=== PATIENT | male | born 1940 | race Caucasian/White ===

== ENCOUNTER 2017-06-10 09:41 | Inpatient (IN) | payer MEDICARE, OTHER ==
[2017-06-10 10:26] LABS: #Basophils 0.1 thou/uL (0.0-0.2); #Eosinphils 0.1 thou/uL (0.0-0.7); #Lymphocytes 1.7 thou/uL (1.20-3.40); #Monocytes 0.7 thou/uL (0.11-0.59); #Neutrophils 6.4 thou/uL (1.40-6.50); %Eosinophils 0.9 % (0.0-10.0); %Lymphocytes 19.1 % (21.0-51.0); %Monocytes 7.3 % (0.0-10.0); %Neutrophils 71.7 % (42.0-75.0); Hemoglobin 15.7 g/dL (14.0-18.0); Mean Corpuscular HGB CONC 32.4 g/dL (32.0-36.0); Mean Corpuscular Hemoglobin 31.9 pg (27.0-31.0); Mean Corpuscular Volume 98.5 fl (80.0-94.0); Mean Platelet Volume 7.9 fL (7.4-10.4); Platelet Count 189 thou/uL (130-400); RBC Distribution Width 12.3 % (11.5-14.5); Red Blood Cell (RBC) Count 4.91 mill/uL (4.70-6.10); White Blood Cell (WBC) Count 8.9 thou/uL (4.8-10.8)
[2017-06-10 10:35] LABS: INR-International Normal Ratio 1.1; PTT 30.1 SEC (22.9-36.1); Prothrombin Time 14.5 SEC (12.0-14.7)
--- NOTE | 2017-06-10 10:41 | CT ---
NONCONTRAST HEAD CT: Date: 06/10/17 COMPARISON: 11/06/16. HISTORY: Patient had previous intracranial hemorrhage. Patient is altered. Stroke alert. TECHNIQUE: A noncontrast head CT is performed from the skull base to the skull vertex. FINDINGS: No parenchymal hemorrhage or extra-axial hematoma. No midline shift. Basilar cisterns are patent. Age -appropriate atrophy. Cortical richard-white matter differentiation is preserved. Ventricles and sulci a re patent and symmetric. Chronic small vessel ischemic changes of the white matter are noted. There i s prominence of the ventricular system. Calvarium is intact. Adequate aeration of the sinuses and mas toid air cells. IMPRESSION: No acute intracranial process. Results of study discussed with Dr. Jones on 06/10/17 at 0955 hours. CODE CR. POS: [facility]
[2017-06-10 10:54] LABS: ALT (SGPT) 23 U/L (8-55); AST (SGOT) 15 U/L (5-34); Albumin 3.9 g/dL (3.4-4.8); Alkaline Phosphatase 75 U/L (40-150); Anion Gap 14 mmol/L (10-20); BUN (Urea Nitrogen) 24 mg/dL (8.4-25.7); Bilirubin, Total 1.4 mg/dL (0.2-1.2); Calc. Creatinine Clearance 0 mL/min (70-130); Calcium 9.3 mg/dL (7.8-10.44); Carbon Dioxide 22 mmol/L (23-31); Chloride 104 mmol/L (98-107); Estimated GFR-MDRD 85; Globulin 2.5 g/dL (2.4-3.5); Glucose 156 mg/dL (83-110); Potassium 3.7 mmol/L (3.5-5.1); Protein, Total 6.4 g/dL (5.8-8.1); Sodium 136 mmol/L (136-145)
[2017-06-10 10:59] LABS: CKMB 1.6 ng/mL (0-6.6); Troponin I Less than 0.010 ng/mL (< 0.028)
[2017-06-10 14:05] LABS: Troponin I Less than 0.010 ng/mL (< 0.028)
[2017-06-10] MEDS ORDERED: HumaLOG 300 UNITS/3 ML VIAL SC PRN (15:53)
[2017-06-10] MEDS ORDERED: Guaifenesin DM 100-10/5 ML UDCUP PO PRN (15:53)
[2017-06-10] MEDS ORDERED: Acetaminophen 325 MG TAB PO PRN (15:53)
[2017-06-10] MEDS ORDERED: Dextrose 50% Abboject 50 ML SYRINGE SLOW IVP PRN (15:53)
[2017-06-10] MEDS ORDERED: Senokot 8.6 MG TAB PO PRN (15:53)
[2017-06-10] MEDS ORDERED: Dextrose 5% in Water 1,000 ML IV PRN (15:53)
[2017-06-10] MEDS ORDERED: Sodium Chloride 0.9% 1,000 ML IV SCH (16:00)
--- NOTE | 2017-06-10 16:58 | HP ---
REASON FOR ADMISSION: Acute encephalopathy. HISTORY OF PRESENT ILLNESS: Please note the majority of this history is obtained by my talking to Ms. Hensley, nurse taking care of Mr. Pathak at [facility], ER physician, ER records, prior medical records as the patient is not oriented. Currently, he just wakes up to touch and knows his name but does not know much else. Per Ms. Hensley, the nurse at the [facility], the a.m. nurse went to see him this morning, and he was not arousable. He normally arouses very easily/wakes up very quick. He was not responding, and his nose was apparently blue, and he was pale. Ms. Hensley also mentions that he is only oriented to person and normally moves all four extremities. He is essentially bed bound there, so he does not know why he fell. His lower extremities are usually slow to move than the upper extremities. He sometimes sits in a [place] chair with assistance. His normal behavior at the [facility] is either he laughs or he gets aggressive. For the most part, he is apparently pleasant at the [facility]. PAST MEDICAL AND SURGICAL HISTORY: History of dementia, prior history of intracranial bleed per ER physician, chronic atrial fibrillation, normal pressure hydrocephalus, seizure disorder, hypertension, diabetes mellitus type 2 , dyslipidemia, benign prostatic hypertrophy, chronic anemia, appendectomy, cholecystectomy, left knee surgery, orthopedic surgery. CURRENT MEDICATIONS: Per [facility] records, patient is on NovoLog sliding scale, aspirin 81 mg daily, atorvastatin 80 mg daily, Colace 100 mg daily, ferrous sulfate 325 mg daily, Keppra 500 mg twice daily, Claritin 10 mg daily, Tylenol p.r.n., Lopressor 25 mg daily, Flomax 0.4 mg daily, potassium chloride 10 mEq daily, Procardia XL 30 mg daily, Protonix 40 mg daily, Proscar 5 mg daily , glipizide 10 mg daily, buspirone 10 mg daily. ALLERGIES: No known drug allergies. CODE STATUS: The patient is a FULL CODE per the [facility] records. He also has a health power of defense attorney, Ms. Brigid Pathak, who appears to be the power of defense attorney for him. FAMILY HISTORY: Cannot be obtained from the patient as he is not cognitively intact at present. PERSONAL HISTORY: The patient lives at [facility]. Does not abuse alcohol or drugs. No current smoking. REVIEW OF SYSTEMS: Cannot be obtained as the patient is not cognitively intact and is oriented only to person. PHYSICAL EXAMINATION: GENERAL: The patient is a 77-year-old male, who is currently not in any acute distress. VITAL SIGNS: Blood pressure 126/94, pulse 90 per minute, respiratory rate 18 per minute, temperature 97.6 degrees Fahrenheit, saturating 97% on room air. NECK: Supple, no elevated JVD. EYES: Extraocular muscles intact. Pupils reacting to light. ORAL CAVITY: Mucous membranes are dry. No exudates or congestion. CARDIOVASCULAR: S1, S2 heard. Regular rhythm. RESPIRATORY: Air entry 1+ bilaterally. No rales or rhonchi. ABDOMEN: Soft, bowel sounds heard. No tenderness, rigidity, or guarding. EXTREMITIES: No peripheral edema or calf tenderness. VASCULAR: Peripheral pulses 1+ bilateral. No ischemic ulcerations or gangrene. CENTRAL NERVOUS SYSTEM: The patient seems to be voluntarily holding his right upper and lower extremity. He was seen moving them when he wants to. The staff have noticed him moving his right upper and lower extremities as well. He freely moves his left upper and lower extremity. PSYCHIATRIC: Cannot be assessed as patient is not oriented at present. LABORATORY DATA: CT brain shows no acute intracranial process. EKG done shows atrial fibrillation at 108 beats per minute. Troponin x2 is negative. BUN 24, creatinine 0.8, glucose 156. Albumin is 3.9. PT, INR, PTT within normal limits. White count of 8, H&H 15 and 48, platelet count 189 with MCV of 98. CLINICAL IMPRESSION AND PLAN: The patient was a stroke alert from ER with apparent right-sided weakness. The patient is seen moving right upper and lower extremities in the ER but holds them voluntarily in an extended position when we try to flex them. He is not oriented, and patient has advanced dementia. He was not having any seizure activity when I examined him. He was apparently not his usual self with acute encephalopathy from early this morning. Likely, metabolic encephalopathy, and we will try to ascertain the same. He will be gently hydrated with normal saline at 60 mL per hour. His electrolytes seem to be okay at present. We will continue him on full dose aspirin, Lipitor, ferrous sulfate, finasteride, oxybutynin, Lopressor, and Keppra as before. Echo and MRI of the brain will also be obtained. He will be on clear liquid diet until evaluated by Speech. We will continue to closely monitor him on the stroke unit. FERNANDO
[2017-06-10 17:21] LABS: Troponin I Less than 0.010 ng/mL (< 0.028)
--- NOTE | 2017-06-10 17:25 | CON ---
DATE OF CONSULTATION: 06/10/2017 IMPRESSION: 1. Transient alteration of responsiveness, likely secondary to an unwitnessed seizure. 2. Dementia. 3. Diabetes. 4. Atrial fibrillation. 5. Coronary artery disease. 6. Hyperlipidemia. PLAN: 1. Keppra 750 mg twice a day. 2. The patient will return to the senior living. Mr. Pathak is a 77-year-old gentleman with history of dementia, who is a senior living resident, w ho was found unresponsive in his bed and brought into the emergency room. His vital signs, lab work and CAT scan of the brain were all unremarkable. The patient is regaining consciousness and has no m juan luis of what took place at the emergency room. PAST MEDICAL HISTORY: As listed above. ALLERGIES: None reported. SOCIAL HISTORY: Unremarkable. MEDICATION LIST: Reviewed. REVIEW OF SYSTEMS: The patient has no complaint of headache, nausea, dizziness, chest pain, shortnes s of breath or difficulty swallowing. PHYSICAL EXAMINATION: GENERAL: He is a well-nourished elderly gentleman, sitting up in the bed, very pleasant and cooperat yoana. HEENT: Pupils equal and reactive. Conjunctivae clear. Oropharynx clear. Tongue appears uninjured. NECK: Supple. No lymphadenopathy noted. EXTREMITIES: No cyanosis or edema. NEUROLOGIC: He was alert and cooperative. His speech was fluent and clear. He was only oriented to person, but did not know his age or any other current facts. Cranial nerves were intact. Motor exa m showed good strength throughout the upper extremities. [id number] movements were symmetric and mild tremor in the left hand. He had diminished strength in both legs. Gait is not testable and re portedly is wheelchair bound. Sensation was intact. Plantar responses were downgoing. SUMMARY: Elderly gentleman who reportedly has a history of seizures and had some transient alteratio n of awareness and his workup appears to be normal at this point. Increase his Keppra by 500 mg a da y and he can likely return to the senior living.
[2017-06-10] MEDS ORDERED: Atorvastatin Calcium 40 MG TAB PO SCH (21:00)
[2017-06-10] MEDS: Famotidine 20 MG TAB PO SCH (22:08)
[2017-06-10] MEDS: levETIRAcetam 500 MG TAB PO SCH (22:08)
[2017-06-10] MEDS: Metoprolol Tartrate 50 MG TAB PO SCH (22:09)
[2017-06-10] MEDS: Oxybutynin 5 MG TAB PO SCH (22:09)
[2017-06-10] MEDS: Docusate 100 MG CAP PO SCH (22:10)
[2017-06-11 08:34] LABS: #Basophils 0.1 thou/uL (0.0-0.2); #Eosinphils 0.1 thou/uL (0.0-0.7); #Lymphocytes 2.3 thou/uL (1.20-3.40); #Monocytes 0.6 thou/uL (0.11-0.59); #Neutrophils 3.7 thou/uL (1.40-6.50); %Basophils 1.1 % (0.0-1.0); %Eosinophils 1.9 % (0.0-10.0); %Lymphocytes 33.6 % (21.0-51.0); %Monocytes 8.7 % (0.0-10.0); %Neutrophils 54.6 % (42.0-75.0); Hemoglobin 14.2 g/dL (14.0-18.0); Mean Corpuscular HGB CONC 32.5 g/dL (32.0-36.0); Mean Corpuscular Hemoglobin 32.2 pg (27.0-31.0); Mean Corpuscular Volume 99.1 fl (80.0-94.0); Platelet Count 197 thou/uL (130-400); RBC Distribution Width 12.4 % (11.5-14.5); Red Blood Cell (RBC) Count 4.41 mill/uL (4.70-6.10); White Blood Cell (WBC) Count 6.8 thou/uL (4.8-10.8)
[2017-06-11 08:52] LABS: Anion Gap 11 mmol/L (10-20); Calc. Creatinine Clearance 73 mL/min (70-130); Calcium 8.9 mg/dL (7.8-10.44); Carbon Dioxide 28 mmol/L (23-31); Chloride 103 mmol/L (98-107); Cholesterol 100 mg/dl (< 200 Desired); Estimated GFR-MDRD 86; Potassium 3.8 mmol/L (3.5-5.1); Sodium 138 mmol/L (136-145); Triglycerides 84 mg/dL (Less than 150)
[2017-06-11] MEDS ORDERED: Aspirin 325 mg Enteric Coated Tablet PO SCH (09:00)
[2017-06-11] MEDS ORDERED: Enoxaparin Sodium 40 MG/0.4 ML SYRINGE SC SCH (09:00)
[2017-06-11] MEDS ORDERED: Finasteride 5 MG TAB PO SCH (09:00)
[2017-06-11] MEDS ORDERED: Ferrous Sulfate 325 MG TAB PO SCH (09:00)
[2017-06-11] MEDS ORDERED: Prevnar 13-Val Conj/PF 0.5 ML SYRINGE IM ONE (09:00)
[2017-06-11 09:02] LABS: BUN (Urea Nitrogen) 29 mg/dL (8.4-25.7); Glucose 110 mg/dL (83-110); HDL Cholesterol 34 mg/dL (>60 Neg Risk); LDL Cholesterol, Calculated 50 mg/dL
[2017-06-11] MEDS: Famotidine 20 MG TAB PO SCH (10:42)
[2017-06-11] MEDS: levETIRAcetam 500 MG TAB PO SCH (10:42)
[2017-06-11] MEDS: Oxybutynin 5 MG TAB PO SCH (10:42)
[2017-06-11] MEDS: Docusate 100 MG CAP PO SCH (10:42)
[2017-06-11] MEDS: Metoprolol Tartrate 50 MG TAB PO SCH (10:43)
--- NOTE | 2017-06-11 11:15 | PDOC.PN ---
- Subjective Encounter Start Date: 06/11/17 Encounter Start Time: 09:20 Subjective: awake, responds well to verbal questions -: is hungry wants to eat -: no seizures while on stroke unit - Objective Resuscitation Status: Resuscitation Status FULL:Full Resuscitation MAR Reviewed: Yes Vital Signs & Weight: Vital Signs (12 hours) Temp Pulse Resp BP Pulse Ox 06/11/17 08:09 97.5 F L 77 16 162/109 H 95 06/11/17 03:18 96.8 F L 76 16 143/106 H 95 06/10/17 23:17 97 F L 71 16 173/118 H 95 Weight Admit Weight 160 lb 12.8 oz Weight 164 lb I&O: 06/10/17 06/11/17 06/12/17 06:59 06:59 06:59 Intake Total 960 Balance 960 Result Diagrams: 06/11/17 08:08 06/11/17 08:08 Additional Labs: Accuchecks 06/11/17 06/10/17 06/10/17 06:16 20:34 18:03 POC Glucose 117 H 201 H 113 H Phys Exam - Physical Examination HEENT: PERRLA, moist MMs Neck: no JVD, supple Respiratory: no wheezing, no rales Cardiovascular: RRR, no significant murmur Gastrointestinal: soft, non-tender, positive bowel sounds Musculoskeletal: no edema, pulses present Neurological: non-focal, moves all 4 limbs Dx/Plan (1) Acute encephalopathy Code(s): G93.40 - ENCEPHALOPATHY, UNSPECIFIED Status: Resolved (2) Afib Code(s): I48.91 - UNSPECIFIED ATRIAL FIBRILLATION Status: Chronic Qualifiers: Atrial fibrillation type: chronic (3) BPH (benign prostatic hyperplasia) Code(s): N40.0 - BENIGN PROSTATIC HYPERPLASIA WITHOUT LOWER URINRY TRACT SYMP Status: Chronic Qualifiers: Lower urinary tract symptom presence: unspecified whether lower urinary tract symptoms present Qualified Code(s): N40.0 - Benign prostatic hyperplasia without lower urinary tract symptoms (4) CAD (coronary artery disease) Code(s): I25.10 - ATHSCL HEART DISEASE OF [place] CORONARY ARTERY W/O ANG PCTRS Status: Chronic Qualifiers: Coronary Disease-Associated Artery/Lesion type: [place] artery [place] vs. transplanted heart: [place]ka heart Associated angina: without angina Qualified Code(s): I25.10 - Atherosclerotic heart disease of [place] coronary artery without angina pectoris (5) DM type 2 (diabetes mellitus, type 2) Status: Chronic Qualifiers: Diabetes mellitus complication status: with unspecified complications Diabetes mellitus skilled nursing insulin use: without skilled nursing use Qualified Code( s): E11.8 - Type 2 diabetes mellitus with unspecified complications (6) Dementia Code(s): F03.90 - UNSPECIFIED DEMENTIA WITHOUT BEHAVIORAL DISTURBANCE Status: Chronic Qualifiers: Dementia type: unspecified type Dementia behavioral disturbance: without behavioral disturbance Qualified Code(s): F03.90 - Unspecified dementia without behavioral disturbance (7) Dyslipidemia Code(s): E78.5 - HYPERLIPIDEMIA, UNSPECIFIED Status: Chronic (8) Seizure disorder Code(s): G40.909 - EPILEPSY, UNSP, NOT INTRACTABLE, WITHOUT STATUS EPILEPTICUS Status: Acute - Plan is on increased dose of keppra now -: likely had unwitnessed seizure at [facility] prior to arrival in post ictal phase? -: MRI for completion -: pelvic xray to r/o fracture -: is seen moving all extremities * . d/w son at bedside and gave a full update, including possible dc back to [facility] this afternoon. Review of Systems - Medications/Allergies Allergies/Adverse Reactions: Allergies Allergy/AdvReac Type Severity Reaction Status Date / Time No Known Allergies Allergy Verified 07/16/16 04:43 Medications: Current Medications Acetaminophen (Tylenol) 650 mg PO Q4H PRN PRN Reason: Headache/Fever or Pain Aspirin (Ecotrin) 325 mg PO DAILY [facility] Last Admin: 06/11/17 10:42 Dose: 325 mg Atorvastatin Calcium (Lipitor) 80 mg PO HS [facility] Last Admin: 06/10/17 22:08 Dose: 80 mg Dextrose/Water (Dextrose 50%) 25 gm SLOW IVP PRN PRN PRN Reason: Hypoglycemia Docusate Sodium (Colace) 100 mg PO BID [facility] Last Admin: 06/11/17 10:42 Dose: 100 mg Enoxaparin Sodium (Lovenox) 40 mg SC 0900 [facility] Last Admin: 06/11/17 10:43 Dose: 40 mg Famotidine (Pepcid) 20 mg PO BID [facility] Last Admin: 06/11/17 10:42 Dose: 20 mg Ferrous Sulfate (Feosol) 325 mg PO DAILY [facility] Last Admin: 06/11/17 10:42 Dose: 325 mg Finasteride (Proscar) 5 mg PO DAILY [facility] Last Admin: 06/11/17 10:43 Dose: 5 mg Glucagon (Glucagon) 1 mg IM PRN PRN PRN Reason: Hypoglycemia Guaifenesin/Dextromethorphan (Robitussin Dm) 15 ml PO Q4H PRN PRN Reason: Cough Dextrose/Water (D5w) 1,000 mls @ 0 mls/hr IV .Q0M PRN; As Directed PRN Reason: Hypoglycemia Insulin Human Lispro (Humalog) 0 units SC .MODERATE SLIDING SC PRN PRN Reason: Moderate Correctional Scale Levetiracetam (Keppra) 500 mg PO BID [facility] Last Admin: 06/11/17 10:42 Dose: 500 mg Metoprolol Tartrate (Lopressor) 50 mg PO BID [facility] Last Admin: 06/11/17 10:43 Dose: 50 mg Oxybutynin Chloride (Ditropan) 5 mg PO BID [facility] Last Admin: 06/11/17 10:42 Dose: 5 mg Senna (Senokot) 2 tab PO HSPRN PRN PRN Reason: Constipation
--- NOTE | 2017-06-11 13:32 | RAD ---
PELVIS ONE VIEW: HISTORY: Evaluate for fracture. COMPARISON: None. FINDINGS: Mild narrowing of both hip joints. Obturator rings are intact. SI joints and pubic symphysis are un remarkable. Mild vascular calcifications. Numerous phleboliths in the pelvis. IMPRESSION: No displaced fracture or malalignment. POS: [facility]
[2017-06-11 13:42] VITALS: BMI 22.8
--- NOTE | 2017-06-11 13:49 | MRI ---
MRI BRAIN WITHOUT CONTRAST: HISTORY: Stroke. Previous intracranial hemorrhage. COMPARISON: CT brain prior day. FINDINGS: On the diffusion weighted imaging sequence, there are no areas of diffusion restriction to suggest ac chana infarction. This is confirmed on the ADC map. Moderate atrophy. Extensive periventricular and deep white matter microangiopathic changes. The exam ination is severely limited on the axial images due to motion. The cerebellar tonsils terminate abov e the foramen magnum. A sebaceous cyst of the posterior soft tissues of the neck is present. On the susceptibility weighted imaging sequence, there is a small focus of staining along the left th alamus likely from old hemorrhage. IMPRESSION: 1. No acute infarction. 2. Extensive microangiopathic changes with moderate atrophy. 3. Exam is limited due to extensive motion. POS: [facility]
--- NOTE | 2017-06-11 14:27 | DIS ---
DATE OF ADMISSION: 06/10/2017 DATE OF DISCHARGE: 06/11/2017 DISCHARGE DISPOSITION: To [facility]. PRIMARY DISCHARGE DIAGNOSIS: Acute encephalopathy, likely due to seizures. SECONDARY DISCHARGE DIAGNOSES: History of prior CVA, chronic atrial fibrillation, coronary artery di sease, benign prostatic hypertrophy, diabetes mellitus type 2, advanced dementia, dyslipidemia. PROCEDURES DONE DURING HOSPITALIZATION: CT brain done showed no acute intracranial abnormalities. M RI brain showed no acute infarct, extensive microangiopathic changes with moderate atrophy. Pelvic x -ray done showed no fractures, H&H 14 and 43, platelet count 197, BUN 29, creatinine 0.8. LDL was 50 . Troponin x3 negative. DISCHARGE MEDICATIONS: Keppra 750 mg p.o. twice daily, glipizide 5 mg twice daily, Proscar 5 mg p.o. daily, ferrous sulfate 325 mg p.o. daily, Colace 100 mg p.o. twice daily, atorvastatin 80 mg p.o. da luz maria, aspirin 81 mg p.o. daily, Lopressor 50 mg p.o. twice daily, Procardia-XL 60 mg p.o. daily, oxybu tynin 5 mg p.o. twice daily, Protonix 40 mg p.o. daily. ALLERGIES: No known drug allergies. INPATIENT CONSULTS: Dr. Elliott for Neurology. BRIEF COURSE DURING HOSPITALIZATION: The patient initially was sent from [facility] for altered mental state. He was not responding and was very pale and his nose was blue prior to him mirtha ng sent over here. The patient has known history of advanced dementia and is oriented only to person . He talks and responds to verbal questions well. This was at his baseline. The patient was evalua kari here in the ER and was on the stroke unit as there was initial suspicion of possible right-sided weakness. The patient is moving all 4 extremities. He has had a CT brain and MRI brain done, which does not show any acute infarct or bleed. The patient's acute encephalopathy is due to seizures like ly which was not witnessed, and the patient most likely was in a postictal state when he was transfer red here. He has remained hemodynamically stable and neurologically stable. This morning, he is moises k to his baseline and this was confirmed with his son who is here at bedside. Pelvic x-ray was done as well to make sure there are no fractures and there is no fracture on the x-ray. He is hemodynamic ally stable and will be transferred back to [facility]. Please note the patient has had prior history of intracranial bleed and is not on any anticoagulant with a history of atrial fibrilla tion. Please see a face to face documentation for the day of discharge on [facility]. A total of 35 minutes was spent on discharge plan.
[2017-06-11 16:09] VITALS: TEMP 97.4
[2017-06-11 16:40] VITALS: BP 145/103
== END 2017-06-11 18:06 | DRG 100 ==
LOC: ERS 09:41 → ERHOLD 12:06 → 2SE 16:10
PROVIDERS: ADMIT Internal Medicine; ATTEND Internal Medicine
DX: G40.909 Epilepsy, unspecified, not intractable, without status epilepticus (principal); G93.40 Encephalopathy, unspecified; G91.2 (Idiopathic) normal pressure hydrocephalus; I48.2 Chronic atrial fibrillation; E11.9 Type 2 diabetes mellitus without complications; D64.9 Anemia, unspecified; F03.90 Unspecified dementia, unspecified severity, without behavioral disturbance, psychotic disturbance, mood disturbance, and anxiety; E78.5 Hyperlipidemia, unspecified; I10 Essential (primary) hypertension; Z74.01 Bed confinement status; N40.0 Benign prostatic hyperplasia without lower urinary tract symptoms; Z79.4 Long term (current) use of insulin; Z86.73 Personal history of transient ischemic attack (TIA), and cerebral infarction without residual deficits; I25.10 Atherosclerotic heart disease of native coronary artery without angina pectoris; Z79.84 Long term (current) use of oral hypoglycemic drugs; Z79.82 Long term (current) use of aspirin
CPT/HCPCS: 36415; 36416; 70450; 70551; 72170; 80048; 80053; 80061; 82553; 84484; 85025; 85610; 85730; 90471; 90670; 93005; 93306; G0009; G8978-GP-CM; G8979-GP-CL; G8987-GO-CM; G8988-GO-CM; G8989-GO-CM; G8996-GN-CJ; G8997-GN-CJ; J1650

== ENCOUNTER 2017-09-11 11:51 | Inpatient (IN) | payer MEDICARE, MEDICAID ==
--- NOTE | 2017-09-11 12:28 | CT ---
CT OF BRAIN PERFORMED WITHOUT CONTRAST ENHANCEMENT: Date: 09/11/17 HISTORY: Aphasia, onset last night. COMPARISON: 06/10/17. FINDINGS: There is generalized ventricular and sulcal prominence with ventricles being slightly more prominent than expected for sulci. The possibility of a normal pressure hydrocephalus is not excluded. This is a stable finding as compared to the prior examination. There are chronic white matter changes seen. T he mastoid air cells and visualized sinuses are clear. IMPRESSION: No acute intracranial abnormalities. Findings telephoned to Dr. Woodruff at 1206 hours. CODE CR. POS: [facility]
--- NOTE | 2017-09-11 13:02 | CT ---
CT ANGIO OF HEAD AND NECK PERFORMED WITH INTRAVENOUS CONTRAST ENHANCEMENT WITH 3D RECONSTRUCTIONS: HISTORY: Aphasia symptoms onset last night. FINDINGS: There is a small left pleural effusion. No focal infiltrative process seen. There are left lobe thy roid nodules present. No significant jugular chain adenopathy. Technically, a satisfactory examination was obtained on angiographic study. 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 The right innominate is very tortuous. Righ t common internal and external carotid arteries show no significant stenosis. Minimal calcified plaq ue is seen at the carotid bifurcation. On the left side, there is no significant stenosis of the left common internal or external carotid ar teries. Just below the level of the mastoid air cells there is a linear filling defect seen within t he left internal carotid artery. This is favored to be related to streak artifact related to patient 's dental work, although the possibility of small focal aneurysm cannot be definitely excluded. This was reviewed with Dr. Herrera who agrees. CT ANGIO OF HEAD PERFORMED WITH INTRAVENOUS CONTRAST ENHANCEMENT WITH 3D RECONSTRUCTIONS: The A1 segment of the right anterior cerebral artery is atretic. The main contribution of the A2 seg ments is from the left side. There is no evidence of any areas of stenosis or other areas of narrowi ng in the anterior or middle cerebral arteries or their branches. The vertebral arteries are codominant and equally contribute to the basilar artery which is tortuous but not aneurysmal. Posterior cerebral arteries are unremarkable. IMPRESSION: Linear filling defect seen within the left internal carotid artery just below the level of the mastoi ds. This is favored to be streak artifact related to dental work, although a small focal intimal dis section is not totally excluded. No other significant findings. The findings were discussed with Dr Todd Woodruff and Dr. Herrera. CODE CR POS: [facility]
--- NOTE | 2017-09-11 13:05 | RAD ---
PORTABLE CHEST VIEW: Date: 09/11/17 Time: 1206 hours HISTORY: Altered mental status. FINDINGS/IMPRESSION: Comparison made with exam of 09/20/16. The heart size is borderline. No lobar consolidation, pneumothoraces, fady pulmonary edema, or large effusions are seen. POS: [facility]
[2017-09-11 13:12] LABS: #Eosinphils 0.1 thou/uL (0.0-0.7); #Lymphocytes 1.4 thou/uL (1.20-3.40); #Monocytes 0.7 thou/uL (0.11-0.59); #Neutrophils 6.1 thou/uL (1.40-6.50); %Basophils 0.5 % (0.0-1.0); %Lymphocytes 16.8 % (21.0-51.0); %Monocytes 8.5 % (0.0-10.0); %Neutrophils 73.2 % (42.0-75.0); Hemoglobin 15.1 g/dL (14.0-18.0); Mean Corpuscular HGB CONC 33.8 g/dL (32.0-36.0); Mean Corpuscular Hemoglobin 32.2 pg (27.0-31.0); Mean Corpuscular Volume 95.2 fl (80.0-94.0); Mean Platelet Volume 7.8 fL (7.4-10.4); Platelet Count 185 thou/uL (130-400); RBC Distribution Width 12.8 % (11.5-14.5); Red Blood Cell (RBC) Count 4.69 mill/uL (4.70-6.10); White Blood Cell (WBC) Count 8.3 thou/uL (4.8-10.8)
[2017-09-11 13:37] LABS: CKMB 1.6 ng/mL (0-6.6); Troponin I Less than 0.010 ng/mL (< 0.028)
[2017-09-11] MEDS ORDERED: Iopamidol 370 76% 100 ML VIAL ONE (13:39)
[2017-09-11 13:40] LABS: ALT (SGPT) 22 U/L (8-55); AST (SGOT) 16 U/L (5-34); Albumin 3.5 g/dL (3.4-4.8); Alkaline Phosphatase 99 U/L (40-150); Anion Gap 9 mmol/L (10-20); BUN (Urea Nitrogen) 15 mg/dL (8.4-25.7); Bilirubin, Total 1.3 mg/dL (0.2-1.2); CK (CPK) 30 U/L (30-200); Calc. Creatinine Clearance 0 mL/min (70-130); Calcium 8.6 mg/dL (7.8-10.44); Carbon Dioxide 27 mmol/L (23-31); Chloride 103 mmol/L (98-107); Estimated GFR-MDRD Greater than 90; Globulin 2.6 g/dL (2.4-3.5); Glucose 101 mg/dL (83-110); Lipase 10 U/L (8-78); Potassium 3.4 mmol/L (3.5-5.1); Protein, Total 6.1 g/dL (5.8-8.1); Sodium 136 mmol/L (136-145)
[2017-09-11 14:07] LABS: Bilirubin Negative (Negative); Blood, Urine Negative (Negative); Clarity CLEAR (Clear); Glucose, Urine (Dipstick) Negative (Negative); Leukocyte Negative (Negative); Nitrite Negative (Negative); Protein, Urine (Dipstick) Negative (Neg-Trace); Specific Gravity, Urine 1.028 (1.002-1.036); Urobilinogen 0.2 mg/dL (0.2-1.0)
[2017-09-11] MEDS ORDERED: Acetaminophen 325 MG TAB PO PRN (15:38)
[2017-09-11] MEDS ORDERED: Acetaminophen 650 MG Suppository PR PRN (15:38)
[2017-09-11] MEDS ORDERED: Ondansetron HCl/PF 4 MG/2 ML Vial IVP PRN (15:38)
--- NOTE | 2017-09-11 16:19 | HP ---
REASON FOR ADMISSION: Possible cerebrovascular accident with right hemineglect. HISTORY OF PRESENTING ILLNESS: Please note majority of this history is obtained by talking to patient's son, Mr. Dinesh Pathak, ER physician and prior medical records as the patient is not oriented. The patient apparently was found to be unresponsive this morning at the long-term at [facility]. He normally is very bubbly and talks. He also loves food and eats. This morning, he did not eat his breakfast and he was not having eye contact. The patient was not communicative at all. In fact, he became more drowsy and had to be sent to the emergency room. On arrival here, patient has had stroke alert. He was found to have a right hemineglect. He was not moving his right upper extremity, but was actively moving left upper and lower, not so much as to right lower, but would move his toes and ankle occasionally with part of unpurposeful movement in the ER. He has had CT angio of the brain and CT brain , both have not revealed any acute pathology as of now. His other workup including blood work has not revealed any acute infectious etiology. Has not had any diarrhea per family. He is essentially bedbound at the long-term per family. PAST MEDICAL HISTORY AND PAST SURGICAL HISTORY: The patient has had an unresponsive episode in May of this year and this was thought to be due to seizure and his Keppra was increased to 750 mg twice daily then, dementia, chronic atrial fibrillation, normal pressure hydrocephalus, hypertension, diabetes mellitus type 2, dyslipidemia, benign prostatic hypertrophy, chronic anemia, appendectomy, cholecystectomy, left knee surgery. PERSONAL HISTORY: The patient is a [facility] resident. Does not abuse alcohol or drugs. FAMILY HISTORY: Cannot be obtained as patient is confused at present. No known drug allergies. CURRENT MEDICATIONS: Aspirin 81 mg p.o. daily, atorvastatin 80 mg p.o. daily, Colace 100 mg twice daily, ferrous sulfate 325 mg daily, Proscar 5 mg daily, glipizide 5 mg twice daily, Keppra 750 mg twice daily, loratadine 10 mg daily, Lopressor 50 mg twice daily, Procardia-XL 60 mg daily, oxybutynin 5 mg twice daily, and Protonix 40 mg daily. REVIEW OF SYSTEMS: Cannot be obtained as patient is confused and is not oriented. PHYSICAL EXAMINATION: GENERAL: The patient is a 77-year-old male who is not in any acute distress, but is not oriented and has right hemineglect. VITAL SIGNS: Blood pressure 126/74, pulse is 90 per minute, respiratory rate 18 per minute, temperature 97.8 degrees Fahrenheit, and saturating 94% on room air. NECK: Supple, no elevated JVD. EYES: Pupils are reacting to light. No icterus seen. ORAL CAVITY: Mucous membranes are dry. No exudates or congestion. CARDIOVASCULAR SYSTEM: S1, S2 heard. Irregular rhythm. RESPIRATORY SYSTEM: Air entry 1+ bilateral. No ischemic ulcerations or gangrene. CENTRAL NERVOUS SYSTEM: Patient appears to have right hemineglect. He is freely moving left upper and lower extremities. Patient's right upper extremity is held limp by his side. Right lower extremity strength cannot not be assessed, likely 0-1/5. Babinski, patient has reflex withdrawal on the left with equivocal on the right. Gait cannot be tested. PSYCHIATRIC SYSTEM: Cannot be assessed due to patient being confused at present. IMAGING DATA AND LABORATORY DATA: CT brain done shows no acute intracranial abnormality. CT angio brain shows linear filling defect seen within the left internal carotid artery just below the level of the mastoids. This is favored to be streak artifact related to dental work, although a small focal intimal dissection is not totally excluded. Chest x-ray done shows no acute cardiopulmonary abnormality. White count of 8, hemoglobin and hematocrit 15 and 44, platelet count is 185,000 with 73% neutrophils, MCV is 95, potassium 3.4 , BUN 15, creatinine 0.7, glucose 101, total bilirubin 1.3. Liver enzymes are within normal limits. First set of cardiac enzymes are negative. Ammonia is 13. TSH 1.47. UA shows no evidence of UTI. EKG done shows chronic atrial fibrillation which is rate controlled less than 90 beats per minute. CLINICAL IMPRESSION AND PLAN: The patient will be under observation on stroke unit with likely cerebrovascular accident and right hemineglect. He is currently placed under observation. If MRI confirms acute cerebrovascular accident, he will be switched over to inpatient status. The patient has had similar presentation, but no hemineglect in the month of May when he was suspected to have seizures and being postictal. He will be placed on D5 NS at 75 mL per hour. He is slowly waking up per ER physician. On arrival, he was fully obtunded, but now he is talking gibberish and is trying to wake up. He will be placed on aspirin 300 mg per rectal and very minimal oral medications until he wakes up fully. We have discussed code status with patient's son, Mr. Dinesh Pathak who is also the power of assistant city attorney. He wants him to be DO NOT RESUSCITATE for now. We will continue to closely monitor him on the stroke unit. Dr. Brayan Rudd is front office assistant for Neurology and will be consulted. FERNANDO
--- NOTE | 2017-09-11 17:58 | MRI ---
BRAIN MRI WITHOUT CONTRAST: 09/11/17 HISTORY: Stroke. Patient is unable to speak or move at all. COMPARISON: 06/11/17 CORRELATION: CT angiogram of the neck 09/11/17. TECHNIQUE: Brain MRI is performed without gadolinium. Multisequential, multiplanar imaging is performed. FINDINGS: The calvarium has a normal T1 marrow signal intensity. Midline brain parenchymal structures are unrem arkable. There is evidence of restricted diffusion involving the right temporal and parietal lobe suggesting a reas of cortical infarction. Axial T2 weighted images are limited due to motion. Grossly, the central arterial flow voids appear t o be maintained. No evidence of hemorrhage on the axial gradient echo sequence. No evidence of acute hemorrhage in the axial gradient echo sequence. Remote insult in the left thalamus is noted. On the F LAIR sequence, there are chronic small vessel ischemic change in the white matter. Partial opacification of the left mastoid air cells. 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 POS: CONNOR
[2017-09-11] MEDS: Dextrose 5 % And 0.9 % NaCl 1,000 ML IV SCH (19:52)
[2017-09-11] MEDS ORDERED: LEVETIRACETAM 750 MG IV SCH (21:00)
[2017-09-11] MEDS ORDERED: LEVETIRACETAM 750 MG PO SCH (21:00)
[2017-09-11] MEDS: Famotidine 40 MG/4 ML VIAL SLOW IVP SCH (21:28)
[2017-09-11] MEDS: Oxybutynin 5 MG TAB PO SCH (21:28)
[2017-09-11] MEDS: Metoprolol Tartrate 50 MG TAB PO SCH (21:28)
[2017-09-11] MEDS: Docusate 100 MG CAP PO SCH (21:29)
--- NOTE | 2017-09-12 00:26 | CON ---
DATE OF CONSULTATION: 09/11/2017 REFERRING PHYSICIAN: Dr. Venecia Perry. REASON FOR CONSULTATION: Right-sided weakness with a hemineglect. HISTORY OF PRESENT ILLNESS: Mr. Pathak is a 77-year-old male who has been concerned fo r evaluation of right-sided weakness with right hemineglect. History is very limited as patient is u nable to provide and there are no family member present at bedside, thus most of the history is obtai anupam from the patient's medical chart. Apparently, the patient found to be unresponsive this morning at correction in [facility]. He is normally very talkative. He became drowsy and had to be sent to the emergency room. On arrival here, he was found to have right hemineglect. He was not moving his right upper extremity, but was actively moving his left upper and left lower extremity. Stroke aler t was initiated in the ER where CT angiogram of the head and neck were done, which showed no acute in tracranial abnormality and thus patient is being admitted for further workup and being asked to [facility] er evaluate for this new onset of right-sided weakness and right hemineglect. Past medical history, past surgical history, family history, social history, current medications, all ergies could not be obtained. REVIEW OF SYSTEMS: Could not be obtained. PHYSICAL EXAMINATION: VITAL SIGNS: Blood pressure 182/100, pulse of 84, temperature of 98, respirations of 16, O2 sats of 100% on room air. GENERAL: Well-developed, well-nourished male in no apparent distress. RESPIRATORY: Clear to auscultation bilaterally. CARDIOVASCULAR: Regular rate and rhythm. NEUROLOGIC: Mental status: The patient is awake, alert, but non-talkative. Speech and language: G lobally aphasic and mute. Cranial nerves: Pupils are 3 mm and reactive. He does not blink to threa t on the right side. He has a left gaze deviation with a left hemineglect. There is a right facial droop noted. Motor exam showed flaccid right upper and right lower extremity. He is spontaneously m oving his right upper extremity very slowly, but he does have drift and poor hand household assistant on the right s amador. His strength in the left upper and left lower extremity is 5/5. Sensory: He does withdraw to noxious stimuli on the right upper and right lower extremity. Babinski: Plantar responses extensor on the right and flexion on the left. Gait and Romberg, coordination could not be tested. LABORATORY DATA: Reviewed, which included CBC, CMP, TSH, CK-MB, troponin, urinalysis, which is signi ficant for potassium of 3.4, otherwise unremarkable. 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 CT angiogram of the head and neck were reviewed, which showed no acute intracranial or extracrani al vascular abnormality. IMPRESSION: 1. Acute left middle cerebral artery posterior cerebral artery distribution ischemic infarct. 2. Right hemiparesis, due to #1. 3. Right hemineglect, due to #1. PLAN: Mr. Pathak is a pleasant 77-year-old male who presented with the acute onset of right-sided weakness and right hemineglect. His MRI does show an acute ischemic infarct which explai ns his current exam findings. Based on the location, this is likely embolic in nature. I would samantha mmend obtaining echocardiogram and placing on telemetry for further evaluation. I would recommend co nsulting PT, OT, speech therapy. He will be n.p.o. until further cleared by Speech Therapy. I agree with starting him on aspirin 300 mg per rectum until he is safe to swallow at which time it can be s witched to oral aspirin 325 mg daily. Continue supportive care. Thank you for consultation.
[2017-09-12 05:42] LABS: #Basophils 0.1 thou/uL (0.0-0.2); #Eosinphils 0.1 thou/uL (0.0-0.7); #Monocytes 0.8 thou/uL (0.11-0.59); #Neutrophils 4.2 thou/uL (1.40-6.50); %Eosinophils 1.8 % (0.0-10.0); %Monocytes 11.3 % (0.0-10.0); Hemoglobin 13.9 g/dL (14.0-18.0); Mean Corpuscular HGB CONC 33.1 g/dL (32.0-36.0); Mean Corpuscular Volume 93.5 fl (80.0-94.0); Mean Platelet Volume 8.1 fL (7.4-10.4); Platelet Count 181 thou/uL (130-400); RBC Distribution Width 12.9 % (11.5-14.5); Red Blood Cell (RBC) Count 4.48 mill/uL (4.70-6.10); White Blood Cell (WBC) Count 7.2 thou/uL (4.8-10.8)
[2017-09-12 05:59] LABS: Anion Gap 14 mmol/L (10-20); BUN (Urea Nitrogen) 15 mg/dL (8.4-25.7); Calc. Creatinine Clearance 85 mL/min (70-130); Calcium 8.4 mg/dL (7.8-10.44); Carbon Dioxide 24 mmol/L (23-31); Cardiac Risk 2.5 (Less than 4.5); Chloride 104 mmol/L (98-107); Cholesterol 88 mg/dl (< 200 Desired); Estimated GFR-MDRD Greater than 90; Glucose 151 mg/dL (83-110); HDL Cholesterol 35 mg/dL (>60 Neg Risk); LDL Cholesterol, Calculated 40 mg/dL; Potassium 3.4 mmol/L (3.5-5.1); Sodium 139 mmol/L (136-145); Triglycerides 64 mg/dL (Less than 150)
[2017-09-12] MEDS: Dextrose 5 % And 0.9 % NaCl 1,000 ML IV SCH ×2 (07:42→11:33)
[2017-09-12] MEDS: Atorvastatin Calcium 40 MG TAB PO SCH (08:03)
[2017-09-12] MEDS: Docusate 100 MG CAP PO SCH ×2 (08:03→21:35)
[2017-09-12] MEDS: Finasteride 5 MG TAB PO SCH (08:04)
[2017-09-12] MEDS: Ferrous Sulfate 325 MG TAB PO SCH (08:04)
[2017-09-12] MEDS: Oxybutynin 5 MG TAB PO SCH ×2 (08:04→21:35)
[2017-09-12] MEDS: Metoprolol Tartrate 50 MG TAB PO SCH ×2 (08:04→21:35)
[2017-09-12] MEDS: Enoxaparin Sodium 40 MG/0.4 ML SYRINGE SC SCH (08:52)
[2017-09-12] MEDS ORDERED: Aspirin 300 MG Suppository PR SCH (09:00)
[2017-09-12 09:26] VITALS: BMI 23.4
[2017-09-12] MEDS: Famotidine 40 MG/4 ML VIAL SLOW IVP SCH ×2 (09:55→21:35)
--- NOTE | 2017-09-12 17:44 | PDOC.PN ---
- Subjective Encounter Start Date: 09/12/17 Encounter Start Time: 08:00 Subjective: not oriented, awake, non verbal - Objective Resuscitation Status: Resuscitation Status DNR:Do Not Resuscitate MAR Reviewed: Yes Vital Signs & Weight: Vital Signs (12 hours) Temp Pulse Pulse Pulse Pulse Resp BP 09/12/17 15:00 98.4 F 94 16 09/12/17 12:00 98.0 F 86 16 09/12/17 10:07 87 91 88 159/116 H 09/12/17 10:05 87 91 88 159/116 H 09/12/17 08:00 97.6 F 87 16 09/12/17 07:59 97.6 F 87 16 BP BP BP Pulse Ox 09/12/17 15:00 149/116 H 96 09/12/17 12:00 145/113 H 93 L 09/12/17 10:07 136/109 H 160/114 H 09/12/17 10:05 136/109 H 160/114 H 09/12/17 08:00 97 09/12/17 07:59 157/109 H 97 Weight Admit Weight 163 lb 3 oz Weight 163 lb 3 oz I&O: 09/11/17 09/12/17 09/13/17 06:59 06:59 06:59 Intake Total 970 Output Total 1 Balance -1 970 Result Diagrams: 09/12/17 04:49 09/12/17 04:49 Phys Exam - Physical Examination HEENT: PERRLA, sclera anicteric Neck: no JVD, supple Respiratory: no wheezing, no rales Cardiovascular: RRR, no significant murmur Gastrointestinal: soft, non-tender, positive bowel sounds Musculoskeletal: no edema, pulses present right hemiplegia, aphasia, right hemineglect is slightly better with head t Dx/Plan (1) Acute CVA (cerebrovascular accident) Code(s): I63.9 - CEREBRAL INFARCTION, UNSPECIFIED Status: Acute Comment: 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 with right hemiplegia, aphasia and right hemineglect (2) Acute encephalopathy Code(s): G93.40 - ENCEPHALOPATHY, UNSPECIFIED Status: Acute (3) Seizure disorder Code(s): G40.909 - EPILEPSY, UNSP, NOT INTRACTABLE, WITHOUT STATUS EPILEPTICUS Status: Chronic (4) Afib Code(s): I48.91 - UNSPECIFIED ATRIAL FIBRILLATION Status: Chronic Qualifiers: Atrial fibrillation type: chronic (5) BPH (benign prostatic hyperplasia) Code(s): N40.0 - BENIGN PROSTATIC HYPERPLASIA WITHOUT LOWER URINRY TRACT SYMP Status: Chronic Qualifiers: Lower urinary tract symptom presence: symptoms absent Qualified Code(s): N40.0 - Benign prostatic hyperplasia without lower urinary tract symptoms (6) CAD (coronary artery disease) Code(s): I25.10 - ATHSCL HEART DISEASE OF [place] CORONARY ARTERY W/O ANG PCTRS Status: Chronic Qualifiers: Coronary Disease-Associated Artery/Lesion type: [place] artery [place] vs. transplanted heart: [place] heart Associated angina: without angina Qualified Code(s): I25.10 - Atherosclerotic heart disease of [place] coronary artery without angina pectoris (7) DM type 2 (diabetes mellitus, type 2) Status: Chronic Qualifiers: Diabetes mellitus detention insulin use: without bed bug exterminator use Diabetes mellitus complication status: with unspecified complications Qualified Code(s) : E11.8 - Type 2 diabetes mellitus with unspecified complications (8) Dementia Code(s): F03.90 - UNSPECIFIED DEMENTIA WITHOUT BEHAVIORAL DISTURBANCE Status: Chronic Qualifiers: Dementia type: unspecified type Dementia behavioral disturbance: without behavioral disturbance Qualified Code(s): F03.90 - Unspecified dementia without behavioral disturbance (9) Dyslipidemia Code(s): E78.5 - HYPERLIPIDEMIA, UNSPECIFIED Status: Chronic - Plan still encephalopathic with ac cva, prognosis guarded -: d/w son Mr.Kyle Pathak -: await echo, is high risk for bleed with anticoagulation due to massive cva -: if pt has LV thrombus will start anticoagulation with risk for rec cva -: Maintain sbp around 160, may hold meds if needed to keep press up * . on asp, lipitor. Keppra iv for now until he is comfortable taking pills. Is on Pureed diet now, will see how he progresses with caloric intake. Review of Systems - Medications/Allergies Allergies/Adverse Reactions: Allergies Allergy/AdvReac Type Severity Reaction Status Date / Time No Known Allergies Allergy Verified 07/16/16 04:43 Medications: Current Medications Acetaminophen (Tylenol) 650 mg PO Q4H PRN PRN Reason: Headache/Fever or Pain Acetaminophen (Tylenol) 650 mg MO Q4H PRN PRN Reason: Headache/Fever or Pain Aspirin (Aspirin) 300 mg MO DAILY [facility] Last Admin: 09/12/17 08:47 Dose: 300 mg Atorvastatin Calcium (Lipitor) 80 mg PO DAILY [facility] Last Admin: 09/12/17 08:03 Dose: Not Given Docusate Sodium (Colace) 100 mg PO BID [facility] Last Admin: 09/12/17 08:03 Dose: Not Given Enoxaparin Sodium (Lovenox) 40 mg SC 0900 [facility] Last Admin: 09/12/17 08:52 Dose: 40 mg Famotidine (Pepcid) 20 mg SLOW IVP Q12HR [facility] Last Admin: 09/12/17 09:55 Dose: 20 mg Ferrous Sulfate (Feosol) 325 mg PO DAILY [facility] Last Admin: 09/12/17 08:04 Dose: Not Given Finasteride (Proscar) 5 mg PO DAILY [facility] Last Admin: 09/12/17 08:04 Dose: Not Given Dextrose/Sodium Chloride (D5 0.9% Ns) 1,000 mls @ 75 mls/hr IV .[id number] [facility] Last Admin: 09/12/17 11:33 Dose: 1,000 mls Levetiracetam 750 mg/ Sodium (Chloride) 107.5 mls @ 215 mls/hr IVPB BID [facility] Last Admin: 09/12/17 08:53 Dose: 107.5 mls Metoprolol Tartrate (Lopressor) 50 mg PO BID [facility] Last Admin: 09/12/17 08:04 Dose: Not Given Ondansetron HCl (Zofran) 4 mg IVP Q6H PRN PRN Reason: Nausea/Vomiting Oxybutynin Chloride (Ditropan) 5 mg PO BID [facility] Last Admin: 09/12/17 08:04 Dose: Not Given
[2017-09-12] MEDS ORDERED: Clopidogrel Bisulfate 75 MG TAB ONE ×2 (21:27)
[2017-09-13] MEDS: Enoxaparin Sodium 40 MG/0.4 ML SYRINGE SC SCH (08:14)
[2017-09-13] MEDS: Ferrous Sulfate 325 MG TAB PO SCH (08:17)
[2017-09-13] MEDS: Famotidine 20 MG TAB PO SCH ×2 (08:17→20:49)
[2017-09-13] MEDS: Oxybutynin 5 MG TAB PO SCH ×2 (08:17→20:50)
[2017-09-13] MEDS: Finasteride 5 MG TAB PO SCH (08:17)
[2017-09-13] MEDS: Metoprolol Tartrate 50 MG TAB PO SCH ×2 (08:17→20:49)
[2017-09-13] MEDS: Atorvastatin Calcium 40 MG TAB PO SCH (08:17)
[2017-09-13] MEDS: Aspirin 325 mg Enteric Coated Tablet PO SCH (08:17)
[2017-09-13] MEDS: Docusate 100 MG CAP PO SCH ×2 (08:17→20:49)
[2017-09-13] MEDS: levETIRAcetam 500 MG TAB PO SCH ×2 (08:17→20:49)
[2017-09-13] MEDS: Dextrose 5 % And 0.9 % NaCl 1,000 ML IV SCH ×2 (08:50→20:51)
--- NOTE | 2017-09-13 10:28 | PDOC.PN ---
- Subjective Encounter Start Date: 09/13/17 Encounter Start Time: 09:00 Subjective: son at bedside, is more awake and smiling -: is trying to eat, speaks a few words now -: still not moving right side - Objective Resuscitation Status: Resuscitation Status DNR:Do Not Resuscitate MAR Reviewed: Yes Vital Signs & Weight: Vital Signs (12 hours) Temp Pulse Resp BP Pulse Ox 09/13/17 09:16 154/106 H 09/13/17 08:36 98.3 F 80 28 H 99 09/13/17 07:30 98.3 F 80 28 H 161/113 H 99 09/13/17 04:04 98.1 F 95 16 177/109 H 95 09/13/17 00:16 99.1 F 91 24 H 162/106 H 96 Weight Admit Weight 163 lb 3 oz Weight 163 lb 3 oz I&O: 09/12/17 09/13/17 09/14/17 06:59 06:59 06:59 Intake Total 2920 Output Total 1 Balance -1 2920 Result Diagrams: 09/12/17 04:49 09/12/17 04:49 Phys Exam - Physical Examination HEENT: PERRLA, moist MMs Neck: no JVD, supple Respiratory: no wheezing, no rales Cardiovascular: RRR, no significant murmur Gastrointestinal: soft, non-tender, positive bowel sounds Musculoskeletal: no edema, pulses present right hemiplegia Dx/Plan (1) Acute CVA (cerebrovascular accident) Code(s): I63.9 - CEREBRAL INFARCTION, UNSPECIFIED Status: Acute Comment: 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 with right hemiplegia, aphasia and right hemineglect (2) Acute encephalopathy Code(s): G93.40 - ENCEPHALOPATHY, UNSPECIFIED Status: Acute Comment: resolving (3) Seizure disorder Code(s): G40.909 - EPILEPSY, UNSP, NOT INTRACTABLE, WITHOUT STATUS EPILEPTICUS Status: Chronic (4) Afib Code(s): I48.91 - UNSPECIFIED ATRIAL FIBRILLATION Status: Chronic Qualifiers: Atrial fibrillation type: chronic (5) BPH (benign prostatic hyperplasia) Code(s): N40.0 - BENIGN PROSTATIC HYPERPLASIA WITHOUT LOWER URINRY TRACT SYMP Status: Chronic Qualifiers: Lower urinary tract symptom presence: symptoms absent Qualified Code(s): N40.0 - Benign prostatic hyperplasia without lower urinary tract symptoms (6) CAD (coronary artery disease) Code(s): I25.10 - ATHSCL HEART DISEASE OF [place] CORONARY ARTERY W/O ANG PCTRS Status: Chronic Qualifiers: Coronary Disease-Associated Artery/Lesion type: [place] artery [place] vs. transplanted heart: [place] heart Associated angina: without angina Qualified Code(s): I25.10 - Atherosclerotic heart disease of [place] coronary artery without angina pectoris (7) DM type 2 (diabetes mellitus, type 2) Status: Chronic Qualifiers: Diabetes mellitus group home insulin use: without group home use Diabetes mellitus complication status: with unspecified complications Qualified Code(s) : E11.8 - Type 2 diabetes mellitus with unspecified complications (8) Dementia Code(s): F03.90 - UNSPECIFIED DEMENTIA WITHOUT BEHAVIORAL DISTURBANCE Status: Chronic Qualifiers: Dementia type: unspecified type Dementia behavioral disturbance: without behavioral disturbance Qualified Code(s): F03.90 - Unspecified dementia without behavioral disturbance (9) Dyslipidemia Code(s): E78.5 - HYPERLIPIDEMIA, UNSPECIFIED Status: Chronic - Plan switch all iv to po, is tolerating oral diet now -: encourage po intake -: d/w son at bedside, TTE shows no obvious thrombus -: risk of bleeding and prior ac blood loss anemia, no anticoagulation -: d/w son above scenario and agrees with current plan * . continue asp, lipitor and lopressor. To work with PT/OT/speech DC plan when he gets better cognitively and eats 50-60% of meals Review of Systems - Medications/Allergies Allergies/Adverse Reactions: Allergies Allergy/AdvReac Type Severity Reaction Status Date / Time No Known Allergies Allergy Verified 07/16/16 04:43 Medications: Current Medications Acetaminophen (Tylenol) 650 mg PO Q4H PRN PRN Reason: Headache/Fever or Pain Acetaminophen (Tylenol) 650 mg [place] Q4H PRN PRN Reason: Headache/Fever or Pain Aspirin (Ecotrin) 325 mg PO DAILY [facility] Last Admin: 09/13/17 08:17 Dose: 325 mg Atorvastatin Calcium (Lipitor) 80 mg PO DAILY [facility] Last Admin: 09/13/17 08:17 Dose: 80 mg Docusate Sodium (Colace) 100 mg PO BID [facility] Last Admin: 09/13/17 08:17 Dose: 100 mg Enoxaparin Sodium (Lovenox) 40 mg SC 0900 [facility] Last Admin: 09/13/17 08:14 Dose: 40 mg Famotidine (Pepcid) 20 mg PO BID [facility] Last Admin: 09/13/17 08:17 Dose: 20 mg Ferrous Sulfate (Feosol) 325 mg PO DAILY [facility] Last Admin: 09/13/17 08:17 Dose: 325 mg Finasteride (Proscar) 5 mg PO DAILY [facility] Last Admin: 09/13/17 08:17 Dose: 5 mg Dextrose/Sodium Chloride (D5 0.9% Ns) 1,000 mls @ 75 mls/hr IV .[id number] [facility] Last Admin: 09/13/17 08:50 Dose: Not Given Levetiracetam (Keppra) 750 mg PO BID [facility] Last Admin: 09/13/17 08:17 Dose: 750 mg Metoprolol Tartrate (Lopressor) 50 mg PO BID [facility] Last Admin: 09/13/17 08:17 Dose: 50 mg Ondansetron HCl (Zofran) 4 mg IVP Q6H PRN PRN Reason: Nausea/Vomiting Oxybutynin Chloride (Ditropan) 5 mg PO BID [facility] Last Admin: 09/13/17 08:17 Dose: 5 mg
[2017-09-14] MEDS: Enoxaparin Sodium 40 MG/0.4 ML SYRINGE SC SCH (09:28)
[2017-09-14] MEDS: Docusate 100 MG CAP PO SCH ×2 (09:28→20:27)
[2017-09-14] MEDS: Finasteride 5 MG TAB PO SCH (09:28)
[2017-09-14] MEDS: Metoprolol Tartrate 50 MG TAB PO SCH ×2 (09:28→20:29)
[2017-09-14] MEDS: levETIRAcetam 500 MG TAB PO SCH ×2 (09:28→20:29)
[2017-09-14] MEDS: Ferrous Sulfate 325 MG TAB PO SCH (09:28)
[2017-09-14] MEDS: Atorvastatin Calcium 40 MG TAB PO SCH (09:28)
[2017-09-14] MEDS: Famotidine 20 MG TAB PO SCH ×2 (09:28→20:28)
[2017-09-14] MEDS: Aspirin 325 mg Enteric Coated Tablet PO SCH (09:28)
[2017-09-14] MEDS: Oxybutynin 5 MG TAB PO SCH ×2 (09:29→20:29)
--- NOTE | 2017-09-14 11:05 | PDOC.PN ---
- Subjective Encounter Start Date: 09/14/17 Encounter Start Time: 10:15 Subjective: awake, smiles, talks a few words -: is seen moving right UE now -: is tolerating oral diet well - Objective Resuscitation Status: Resuscitation Status DNR:Do Not Resuscitate MAR Reviewed: Yes Vital Signs & Weight: Vital Signs (12 hours) Temp Pulse Resp BP Pulse Ox 09/14/17 08:00 98.5 F 68 18 95 09/14/17 07:57 98.5 F 68 18 141/98 H 95 09/14/17 03:35 98.3 F 68 20 160/100 H 94 L 09/14/17 01:26 97 09/13/17 23:59 97.3 F L 65 20 167/87 H 97 Weight Admit Weight 163 lb 3 oz Weight 163 lb 3 oz I&O: 09/13/17 09/14/17 09/15/17 06:59 06:59 06:59 Intake Total 2920 250 773 Balance 2920 250 773 Result Diagrams: 09/12/17 04:49 09/12/17 04:49 Phys Exam - Physical Examination HEENT: PERRLA, moist MMs Neck: no JVD, supple Respiratory: no wheezing, no rales Cardiovascular: RRR, no significant murmur Gastrointestinal: soft, non-tender, positive bowel sounds Musculoskeletal: no edema, pulses present right hemiplegia with UE recovering 2-3/5 strength now follows some verbal stimuli Dx/Plan (1) Acute CVA (cerebrovascular accident) Code(s): I63.9 - CEREBRAL INFARCTION, UNSPECIFIED Status: Acute Comment: left post mca and chief engineer cortical infarct with right hemiplegia, aphasia and right hemineglect (2) Acute encephalopathy Code(s): G93.40 - ENCEPHALOPATHY, UNSPECIFIED Status: Acute Comment: resolving (3) Seizure disorder Code(s): G40.909 - EPILEPSY, UNSP, NOT INTRACTABLE, WITHOUT STATUS EPILEPTICUS Status: Chronic (4) Afib Code(s): I48.91 - UNSPECIFIED ATRIAL FIBRILLATION Status: Chronic Qualifiers: Atrial fibrillation type: chronic (5) BPH (benign prostatic hyperplasia) Code(s): N40.0 - BENIGN PROSTATIC HYPERPLASIA WITHOUT LOWER URINRY TRACT SYMP Status: Chronic Qualifiers: Lower urinary tract symptom presence: symptoms absent Qualified Code(s): N40.0 - Benign prostatic hyperplasia without lower urinary tract symptoms (6) CAD (coronary artery disease) Code(s): I25.10 - ATHSCL HEART DISEASE OF [place] CORONARY ARTERY W/O ANG PCTRS Status: Chronic Qualifiers: Coronary Disease-Associated Artery/Lesion type: [place] artery [place] vs. transplanted heart: [place] heart Associated angina: without angina Qualified Code(s): I25.10 - Atherosclerotic heart disease of [place] coronary artery without angina pectoris (7) DM type 2 (diabetes mellitus, type 2) Status: Chronic Qualifiers: Diabetes mellitus fdc insulin use: without fdc use Diabetes mellitus complication status: with unspecified complications Qualified Code(s) : E11.8 - Type 2 diabetes mellitus with unspecified complications (8) Dementia Code(s): F03.90 - UNSPECIFIED DEMENTIA WITHOUT BEHAVIORAL DISTURBANCE Status: Chronic Qualifiers: Dementia type: unspecified type Dementia behavioral disturbance: without behavioral disturbance Qualified Code(s): F03.90 - Unspecified dementia without behavioral disturbance (9) Dyslipidemia Code(s): E78.5 - HYPERLIPIDEMIA, UNSPECIFIED Status: Chronic - Plan Right UE strength is improving, is able to talk short sentences now -: is tolerating current diet, speech to advance diet as tolerated -: cognition is slowly improving -: continue current meds, no anticoagulation -: TTE showed no obvious thrombus * . Review of Systems - Medications/Allergies Allergies/Adverse Reactions: Allergies Allergy/AdvReac Type Severity Reaction Status Date / Time No Known Allergies Allergy Verified 07/16/16 04:43 Medications: Current Medications Acetaminophen (Tylenol) 650 mg PO Q4H PRN PRN Reason: Headache/Fever or Pain Acetaminophen (Tylenol) 650 mg [place] Q4H PRN PRN Reason: Headache/Fever or Pain Aspirin (Ecotrin) 325 mg PO DAILY [facility] Last Admin: 09/14/17 09:28 Dose: Not Given Atorvastatin Calcium (Lipitor) 80 mg PO DAILY [facility] Last Admin: 09/14/17 09:28 Dose: Not Given Docusate Sodium (Colace) 100 mg PO BID [facility] Last Admin: 09/14/17 09:28 Dose: Not Given Enoxaparin Sodium (Lovenox) 40 mg SC 0900 [facility] Last Admin: 09/14/17 09:28 Dose: Not Given Famotidine (Pepcid) 20 mg PO BID [facility] Last Admin: 09/14/17 09:28 Dose: Not Given Ferrous Sulfate (Feosol) 325 mg PO DAILY [facility] Last Admin: 09/14/17 09:28 Dose: Not Given Finasteride (Proscar) 5 mg PO DAILY [facility] Last Admin: 09/14/17 09:28 Dose: Not Given Dextrose/Sodium Chloride (D5 0.9% Ns) 1,000 mls @ 75 mls/hr IV .[id number] [facility] Last Admin: 09/13/17 20:51 Dose: 1,000 mls Levetiracetam (Keppra) 750 mg PO BID [facility] Last Admin: 09/14/17 09:28 Dose: Not Given Metoprolol Tartrate (Lopressor) 50 mg PO BID [facility] Last Admin: 09/14/17 09:28 Dose: Not Given Ondansetron HCl (Zofran) 4 mg IVP Q6H PRN PRN Reason: Nausea/Vomiting Oxybutynin Chloride (Ditropan) 5 mg PO BID [facility] Last Admin: 09/14/17 09:29 Dose: Not Given
[2017-09-14] MEDS: Dextrose 5 % And 0.9 % NaCl 1,000 ML IV SCH (12:17)
[2017-09-15] MEDS: Dextrose 5 % And 0.9 % NaCl 1,000 ML IV SCH ×3 (00:37→14:33)
[2017-09-15] MEDS: Atorvastatin Calcium 40 MG TAB PO SCH (09:34)
[2017-09-15] MEDS: Famotidine 20 MG TAB PO SCH ×2 (09:34→21:40)
[2017-09-15] MEDS: levETIRAcetam 500 MG TAB PO SCH ×2 (09:34→21:40)
[2017-09-15] MEDS: Ferrous Sulfate 325 MG TAB PO SCH (09:35)
[2017-09-15] MEDS: Aspirin 325 mg Enteric Coated Tablet PO SCH (09:35)
[2017-09-15] MEDS: Metoprolol Tartrate 50 MG TAB PO SCH ×2 (09:35→21:40)
[2017-09-15] MEDS: Docusate 100 MG CAP PO SCH ×2 (09:35→21:40)
[2017-09-15] MEDS: Finasteride 5 MG TAB PO SCH (09:35)
[2017-09-15] MEDS: Oxybutynin 5 MG TAB PO SCH ×2 (09:35→21:40)
[2017-09-15] MEDS: Enoxaparin Sodium 40 MG/0.4 ML SYRINGE SC SCH (10:25)
--- NOTE | 2017-09-15 12:09 | PDOC.PN ---
- Subjective Encounter Start Date: 09/15/17 Encounter Start Time: 08:00 Subjective: still waking up, not in distress -: is moving right upper extre - Objective Resuscitation Status: Resuscitation Status DNR:Do Not Resuscitate MAR Reviewed: Yes Vital Signs & Weight: Vital Signs (12 hours) Temp Pulse Resp BP Pulse Ox 09/15/17 11:45 97.7 F 62 20 150/94 H 94 L 09/15/17 08:00 97.7 F 66 20 154/92 H 94 L 09/15/17 04:00 96.9 F L 75 18 167/95 H 96 Weight Admit Weight 163 lb 3 oz Weight 163 lb 3 oz I&O: 09/14/17 09/15/17 09/16/17 06:59 06:59 06:59 Intake Total 250 1673 Balance 250 1673 Result Diagrams: 09/12/17 04:49 09/12/17 04:49 Phys Exam - Physical Examination HEENT: PERRLA, moist MMs Neck: no JVD, supple Respiratory: no wheezing, no rales Cardiovascular: RRR, no significant murmur Gastrointestinal: soft, non-tender, positive bowel sounds Musculoskeletal: no edema, pulses present right hemiparesis Psychiatric: normal affect Dx/Plan (1) Acute CVA (cerebrovascular accident) Code(s): I63.9 - CEREBRAL INFARCTION, UNSPECIFIED Status: Acute Comment: 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 cortical infarct with right hemiplegia, aphasia and right hemineglect (2) Acute encephalopathy Code(s): G93.40 - ENCEPHALOPATHY, UNSPECIFIED Status: Acute Comment: resolving (3) Seizure disorder Code(s): G40.909 - EPILEPSY, UNSP, NOT INTRACTABLE, WITHOUT STATUS EPILEPTICUS Status: Chronic (4) Afib Code(s): I48.91 - UNSPECIFIED ATRIAL FIBRILLATION Status: Chronic Qualifiers: Atrial fibrillation type: chronic (5) BPH (benign prostatic hyperplasia) Code(s): N40.0 - BENIGN PROSTATIC HYPERPLASIA WITHOUT LOWER URINRY TRACT SYMP Status: Chronic Qualifiers: Lower urinary tract symptom presence: symptoms absent Qualified Code(s): N40.0 - Benign prostatic hyperplasia without lower urinary tract symptoms (6) CAD (coronary artery disease) Code(s): I25.10 - ATHSCL HEART DISEASE OF [place] CORONARY ARTERY W/O ANG PCTRS Status: Chronic Qualifiers: Coronary Disease-Associated Artery/Lesion type: [place] artery [place] vs. transplanted heart: [place] heart Associated angina: without angina Qualified Code(s): I25.10 - Atherosclerotic heart disease of [place] coronary artery without angina pectoris (7) DM type 2 (diabetes mellitus, type 2) Status: Chronic Qualifiers: Diabetes mellitus penitentiary insulin use: without marine oil terminal superintendent use Diabetes mellitus complication status: with unspecified complications Qualified Code(s) : E11.8 - Type 2 diabetes mellitus with unspecified complications (8) Dementia Code(s): F03.90 - UNSPECIFIED DEMENTIA WITHOUT BEHAVIORAL DISTURBANCE Status: Chronic Qualifiers: Dementia type: unspecified type Dementia behavioral disturbance: without behavioral disturbance Qualified Code(s): F03.90 - Unspecified dementia without behavioral disturbance (9) Dyslipidemia Code(s): E78.5 - HYPERLIPIDEMIA, UNSPECIFIED Status: Chronic - Plan is on asp, lopressor, lipitor -: continue PT/OT and ongoing speech assesments -: dc plan in 24hrs to snf, tolerating pureed diet -: his [id number] score is 7 with risk of 11% for thromboembolism and risk o -: -f bleed/hemorrhage is around 8% on anticoag, son has opted for no anticoag * . Is moving right upper extremity from yesterday but not much of right LE, has started talking few sentences. His cva is improving daily. Review of Systems - Medications/Allergies Allergies/Adverse Reactions: Allergies Allergy/AdvReac Type Severity Reaction Status Date / Time No Known Allergies Allergy Verified 07/16/16 04:43 Medications: Current Medications Acetaminophen (Tylenol) 650 mg PO Q4H PRN PRN Reason: Headache/Fever or Pain Acetaminophen (Tylenol) 650 mg [place] Q4H PRN PRN Reason: Headache/Fever or Pain Aspirin (Ecotrin) 325 mg PO DAILY [facility] Last Admin: 09/15/17 09:35 Dose: 325 mg Atorvastatin Calcium (Lipitor) 80 mg PO DAILY [facility] Last Admin: 09/15/17 09:34 Dose: 80 mg Docusate Sodium (Colace) 100 mg PO BID [facility] Last Admin: 09/15/17 09:35 Dose: 100 mg Enoxaparin Sodium (Lovenox) 40 mg SC 0900 [facility] Last Admin: 09/15/17 10:25 Dose: 40 mg Famotidine (Pepcid) 20 mg PO BID [facility] Last Admin: 09/15/17 09:34 Dose: 20 mg Ferrous Sulfate (Feosol) 325 mg PO DAILY [facility] Last Admin: 09/15/17 09:35 Dose: 325 mg Finasteride (Proscar) 5 mg PO DAILY [facility] Last Admin: 09/15/17 09:35 Dose: 5 mg Dextrose/Sodium Chloride (D5 0.9% Ns) 1,000 mls @ 75 mls/hr IV .[id number] [facility] Last Admin: 09/15/17 00:42 Dose: 1,000 mls Levetiracetam (Keppra) 750 mg PO BID [facility] Last Admin: 09/15/17 09:34 Dose: 750 mg Metoprolol Tartrate (Lopressor) 50 mg PO BID [facility] Last Admin: 09/15/17 09:35 Dose: 50 mg Ondansetron HCl (Zofran) 4 mg IVP Q6H PRN PRN Reason: Nausea/Vomiting Oxybutynin Chloride (Ditropan) 5 mg PO BID [facility] Last Admin: 09/15/17 09:35 Dose: 5 mg
[2017-09-16] MEDS: Dextrose 5 % And 0.9 % NaCl 1,000 ML IV SCH (03:30)
[2017-09-16 08:10] LABS: Anion Gap 10 mmol/L (10-20); BUN (Urea Nitrogen) 11 mg/dL (8.4-25.7); Calc. Creatinine Clearance 92 mL/min (70-130); Calcium 8.2 mg/dL (7.8-10.44); Carbon Dioxide 25 mmol/L (23-31); Chloride 105 mmol/L (98-107); Estimated GFR-MDRD Greater than 90; Glucose 183 mg/dL (83-110); Potassium 3.3 mmol/L (3.5-5.1); Sodium 137 mmol/L (136-145)
[2017-09-16] MEDS: Aspirin 325 mg Enteric Coated Tablet PO SCH (09:15)
[2017-09-16] MEDS: Atorvastatin Calcium 40 MG TAB PO SCH (09:15)
[2017-09-16] MEDS: Finasteride 5 MG TAB PO SCH (09:15)
[2017-09-16] MEDS: levETIRAcetam 500 MG TAB PO SCH (09:15)
[2017-09-16] MEDS: Famotidine 20 MG TAB PO SCH (09:15)
[2017-09-16] MEDS: Oxybutynin 5 MG TAB PO SCH (09:15)
[2017-09-16] MEDS: Metoprolol Tartrate 50 MG TAB PO SCH (09:15)
[2017-09-16] MEDS: Ferrous Sulfate 325 MG TAB PO SCH (09:16)
[2017-09-16] MEDS: Docusate 100 MG CAP PO SCH (09:16)
[2017-09-16] MEDS: Enoxaparin Sodium 40 MG/0.4 ML SYRINGE SC SCH (09:25)
--- NOTE | 2017-09-16 11:24 | PDOC.PN ---
- Subjective Encounter Start Date: 09/16/17 Encounter Start Time: 11:23 - Objective Resuscitation Status: Resuscitation Status DNR:Do Not Resuscitate MAR Reviewed: Yes Vital Signs & Weight: Vital Signs (12 hours) Temp Pulse Resp BP Pulse Ox 09/16/17 10:50 155/105 H 09/16/17 08:00 97.9 F 73 16 177/114 H 96 09/16/17 03:57 96.4 F L 69 16 165/111 H 95 09/16/17 03:10 97 Weight Admit Weight 163 lb 3 oz Weight 163 lb 3 oz I&O: 09/15/17 09/16/17 09/17/17 06:59 06:59 06:59 Intake Total 1673 1521 Balance 1673 1521 Result Diagrams: 09/12/17 04:49 09/16/17 07:44 Phys Exam - Physical Examination HEENT: PERRLA, sclera anicteric Respiratory: no wheezing, no rales, no rhonchi, clear to auscultation bilateral Cardiovascular: RRR, no significant murmur, no rub Gastrointestinal: soft, non-tender, no distention, positive bowel sounds Musculoskeletal: no edema Deviation from normal: + right upper and lower extremity weakness Dx/Plan (1) Acute CVA (cerebrovascular accident) Code(s): I63.9 - CEREBRAL INFARCTION, UNSPECIFIED Status: Acute Comment: 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 cortical infarct with right hemiplegia, aphasia and right hemineglect (2) Hypertension Code(s): I10 - ESSENTIAL (PRIMARY) HYPERTENSION Status: Chronic (3) Hypokalemia Code(s): E87.6 - HYPOKALEMIA Status: Acute Comment: resolving (4) Afib Code(s): I48.91 - UNSPECIFIED ATRIAL FIBRILLATION Status: Chronic Qualifiers: Atrial fibrillation type: chronic (5) DM type 2 (diabetes mellitus, type 2) Status: Chronic Qualifiers: Diabetes mellitus extermination inspector insulin use: without penitentiary use Diabetes mellitus complication status: with unspecified complications Qualified Code(s) : E11.8 - Type 2 diabetes mellitus with unspecified complications (6) Dementia Code(s): F03.90 - UNSPECIFIED DEMENTIA WITHOUT BEHAVIORAL DISTURBANCE Status: Chronic Qualifiers: Dementia type: unspecified type Dementia behavioral disturbance: without behavioral disturbance Qualified Code(s): F03.90 - Unspecified dementia without behavioral disturbance - Plan * Acute CVA- He continues to have some right sided weakness- continue PT/OT * HTN- blood pressure is elevated- will re-start Procardia * Patient has tolerated a pureed diet * Permanent AFIB- his heart rate is controlled, His son has opted for no anticoagulation.
[2017-09-16 12:03] VITALS: BP 161/105; TEMP 97.4
--- NOTE | 2017-09-16 16:18 | DIS ---
DATE OF ADMISSION: 09/11/2017 DATE OF DISCHARGE: 09/16/2017 PRIMARY CARE PHYSICIAN: Andriy Dockery M.D. DISCHARGE DISPOSITION: Home. PRIMARY DISCHARGE DIAGNOSES: 1. 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 2. Permanent atrial fibrillation. 3. Hypertension. 4. Diabetes mellitus, type 2. 5. Advanced dementia. DISCHARGE MEDICATIONS: Include aspirin 325 mg daily; BuSpar 30 mg twice a day; iron sulfate 325 mg d aily; Proscar 5 mg daily; glimepiride 1 mg daily, this is to replace glipizide; Keppra 750 mg twice d aily; loratadine 10 mg daily; Procardia-XL 60 mg daily; oxybutynin 5 mg twice a day; pantoprazole 40 mg daily; and atorvastatin 80 mg at bedtime. PROCEDURES DONE DURING ADMISSION: The patient had a CT scan of the brain showing no intracranial abn ormalities. The patient had a CT angiogram with brain perfusion showing a linear filling defect with in the left carotid artery just below the level of the mastoids was favored to be a streak artifact r elated to dental work rather than a dissection. The patient also had an MRI of the brain, which show ed a cortical based infarct involving the left cerebrum at the level of the occipital and posterior t emporal lobe suggesting a predominantly posterior MCA and ROUTE SALES ASSOCIATE distribution infarct. The patient also had an echocardiogram in which the ejection fraction was estimated at 50% to 55%. There was some mo derate mitral regurgitation present. CODE STATUS: DNR. ALLERGIES: No known drug allergies. HOSPITAL COURSE: Mr. Pathak is a pleasant 77-year-old gentleman, who was brought in to the [facility] after he was found to be unresponsive and was less communicative and was not moving his right upp er extremity. He was found to have an acute infarct in the left posterior MCA distribution. The pat ient's mental status improved. During the course of his hospital stay, he was placed on aspirin as w ell as high dose statin and underwent physical therapy and occupational therapy. He was also found t o be in atrial fibrillation. This was discussed with the patient's son and the decision was made not to place him on anticoagulation and after he was stabilized, he will be discharged back to the [facility] with physical therapy and occupational therapy.
[2017-09-16] MEDS ORDERED: busPIRone HCl 10 MG TAB PO SCH (21:00)
[2017-09-17] MEDS ORDERED: NIFEdipine XL 60 MG TAB PO SCH (09:00)
--- NOTE | 2017-09-17 17:54 | PQF ---
NUSRAT RIGGS VINAYA KUMAR MD [id number] [facility] [place]-215 [id number] CLINICAL DOCUMENTATION CLARIFICATION FORM: POST DISCHARGE Addendum to original discharge summary date: ____ Late entry note date: __ DATE: 09/17/2017 ATTN: Please exercise your independent, professional judgment in responding to the clarification form. Clinical indicators are provided on the bottom of this form for your review Please check appropriate box(s): [ x] Encephalopathy: Type: [ x ] Acute [ ] Subacute [ ] Chronic Etiology: [ ] Postictal state [ ] Hypertensive [ ] Metabolic [ ] Toxic [ ] Hepatic with Coma [ ] Hepatic w/o Coma [ ] Hypoxic [ ] Septic [ ] Drug induced: [ ] Unspecified [ ] in the setting of underlying dementia [ x ] Other (please specify) due to acute cva [ ] Transient Alteration of Awareness [ ] Other diagnosis [ ] Unable to determine In addition, please specify: Present on Admission (POA): [ x ] Yes [ ] No [ ] Unable to determine For continuity of documentation, please document condition throughout progress notes and discharge summary. Thank You. CLINICAL INDICATORS - SIGNS / SYMPTOMS / LABS x Altered mental status / confusion improving once cause is corrected (acute) RISK FACTORS CVA TREATMENTS: IV fluids MTDD
== END 2017-09-16 13:40 | DRG 64 ==
LOC: ERS 11:51 → OBSVTOIN 15:10 → 2SE 15:10
PROVIDERS: ADMIT Internal Medicine; ATTEND Internal Medicine
DX: I63.9 Cerebral infarction, unspecified (principal); G93.40 Encephalopathy, unspecified; G81.91 Hemiplegia, unspecified affecting right dominant side; I48.2 Chronic atrial fibrillation; D64.9 Anemia, unspecified; E11.9 Type 2 diabetes mellitus without complications; F03.90 Unspecified dementia, unspecified severity, without behavioral disturbance, psychotic disturbance, mood disturbance, and anxiety; E78.5 Hyperlipidemia, unspecified; G40.909 Epilepsy, unspecified, not intractable, without status epilepticus; I10 Essential (primary) hypertension; I34.0 Nonrheumatic mitral (valve) insufficiency; Z66 Do not resuscitate; N40.0 Benign prostatic hyperplasia without lower urinary tract symptoms; Z79.82 Long term (current) use of aspirin
CPT/HCPCS: 0042T; 36415; 36416; 51701; 70450; 70496; 70498; 70551; 71045; 80048; 80053; 80061; 81003; 82140; 82550; 82553; 83690; 84443; 84484; 85025; 93005; 93306; G8978-GP-CN; G8979-GP-CM; G8987-GO-CN; G8988-GO-CM; G8996-GN-CK; G8997-GN-CI; J1650; J1953; J7050